=== PATIENT | female | born 1955 | race Caucasian/White ===

== ENCOUNTER → 2019-04-12 | Outpatient (CLI) | payer BC ==
--- NOTE | 2019-04-12 15:40 | REP ---
CHEST, TWO VIEWS: There is no evidence of acute infiltrate. No pleural effusion is seen. The heart is normal in size. The mediastinal silhouette is unremarkable. The visualized osseous structures are intact. There are degenerative changes of the spine. IMPRESSION: No acute pulmonary disease. Electronically Signed by Gurwinder Miller MD 04/14/2019 10:25 A
== END ==
LOC: M LRY 14:46
PROVIDERS: ATTEND Physician Assistant Medical
DX: R05 Cough (principal)